=== PATIENT | female | born 1935 | race Caucasian/White ===

== ENCOUNTER 2017-05-15 09:05 | Outpatient (CLI) | payer MEDICARE, OTHER | END 2017-05-15 09:06 | disposition home or self-care (01) | LOC: BICMAMMO 09:05 | PROVIDERS: ATTEND Obstetrics & Gynecology | DX: Z08 Encounter for follow-up examination after completed treatment for malignant neoplasm (principal); Z85.3 Personal history of malignant neoplasm of breast | CPT/HCPCS: 77065; G0279 ==

== ENCOUNTER 2018-01-01 16:44 | Outpatient (CLI) | payer MEDICARE, OTHER ==
--- NOTE | 2018-01-01 18:41 | RAD ---
TWO VIEWS CHEST: 01/01/18 PROVIDED CLINICAL HISTORY: History of breast cancer. FINDINGS: Comparison 05/16/13. The cardiac and mediastinal silhouette is unchanged in appearance. Lungs appear clear. No pleural flu id or pneumothorax apparent. Left convexity scoliosis of the lower thoracic and upper lumbar spine de monstrated. IMPRESSION: No evidence for an acute cardiopulmonary process. POS: [facility]
== END 2018-01-01 16:45 | disposition home or self-care (01) ==
LOC: BICRAD 16:44
PROVIDERS: ATTEND Internal Medicine Hematology & Oncology
DX: R06.02 Shortness of breath (principal)
CPT/HCPCS: 36415; 71046; 80053; 82248; 83615; 84100; 84550

== ENCOUNTER 2018-05-16 13:51 | Outpatient (CLI) | payer MEDICARE, OTHER | END 2018-05-16 13:52 | disposition home or self-care (01) | LOC: BICMAMMO 13:51 | PROVIDERS: ATTEND Internal Medicine Hematology & Oncology | DX: Z08 Encounter for follow-up examination after completed treatment for malignant neoplasm (principal); Z85.3 Personal history of malignant neoplasm of breast; Z85.038 Personal history of other malignant neoplasm of large intestine | CPT/HCPCS: 77065; G0279 ==

== ENCOUNTER 2019-05-20 09:19 | Outpatient (CLI) | payer MEDICARE, OTHER ==
--- NOTE | 2019-05-20 09:57 | MMO ---
Bilateral MAMMO Bilat Screen [facility]. CLINICAL HISTORY: Patient is 84 years old and is seen for screening. The patient has no family history of breast cancer. The patient has a history of left Mastectomy in May, - malignant and left Ultrasound Guided Core Biopsy in April, - malignant. VIEWS: The views performed were: bilateral craniocaudal with tomosynthesis and bilateral mediolateral oblique with tomosynthesis. FILMS COMPARED: The present examination has been compared to prior imaging studies performed at [facility] on 05/11/2015, 05/12/2016, 05/15/2017 and 05/16/2018. This study has been interpreted with the assistance of computer-aided detection. MAMMOGRAM FINDINGS: The breast is heterogeneously dense, which could obscure a lesion on mammography. There are stable benign appearing calcifications seen in the right breast. There are no suspicious masses, suspicious calcifications, or new areas of architectural distortion. IMPRESSION: THERE IS NO MAMMOGRAPHIC EVIDENCE OF MALIGNANCY. A ROUTINE FOLLOW-UP MAMMOGRAM IN 1 YEAR IS RECOMMENDED. THE RESULTS OF THIS EXAM WERE SENT TO THE PATIENT. ACR BI-RADS Category 2 - Benign finding MAMMOGRAPHY NOTE: 1. A negative mammogram report should not delay a biopsy if a dominant of clinically suspicious mass is present. 2. Approximately 10% to 15% of breast cancers are not detected by mammography. 3. Adenosis and dense breasts may obscure an underlying neoplasm. Reported by: VENKATESH SERRATO MD Electonically Signed: [id number]
== END 2019-05-20 09:20 | disposition home or self-care (01) ==
LOC: BICMAMMO 09:19
PROVIDERS: ATTEND Obstetrics & Gynecology
DX: Z12.31 Encounter for screening mammogram for malignant neoplasm of breast (principal); Z90.12 Acquired absence of left breast and nipple; Z91.89 Other specified personal risk factors, not elsewhere classified
CPT/HCPCS: 77063; 77067

== ENCOUNTER 2020-05-25 09:24 | Outpatient (CLI) | payer MEDICARE, OTHER | END 2020-05-25 09:25 | disposition home or self-care (01) | LOC: BICMAMMO 09:24 | PROVIDERS: ATTEND Obstetrics & Gynecology | DX: Z12.31 Encounter for screening mammogram for malignant neoplasm of breast (principal); Z85.3 Personal history of malignant neoplasm of breast; Z90.12 Acquired absence of left breast and nipple | CPT/HCPCS: 77063; 77067 ==

== ENCOUNTER 2022-07-06 13:02 | Outpatient (CLI) | payer MEDICARE, OTHER | END 2022-07-06 13:03 | disposition home or self-care (01) | LOC: BICMAMMO 13:02 | PROVIDERS: ATTEND Family Medicine | DX: Z12.31 Encounter for screening mammogram for malignant neoplasm of breast (principal); R92.1 Mammographic calcification found on diagnostic imaging of breast; Z90.12 Acquired absence of left breast and nipple | CPT/HCPCS: 77063; 77067 ==

== ENCOUNTER 2023-05-25 08:23 | Outpatient (CLI) | payer MEDICARE, OTHER | END 2023-05-25 08:24 | disposition home or self-care (01) | LOC: NM 08:23 | PROVIDERS: ATTEND Psychiatry & Neurology Neurology | DX: R29.818 Other symptoms and signs involving the nervous system (principal) | CPT/HCPCS: 78803; A9584 ×2 ==